=== PATIENT | male | born 1980 | race Hispanic/Latino ===

== ENCOUNTER 2017-08-17 21:10 | Emergency (ER) | payer MEDICAID ==
[2017-08-17 21:12] VITALS: BP 120/72; PULSE 78; RESP 16; TEMP 97.8; O2SAT 98
--- NOTE | 2017-08-17 21:52 | ED PDOC ---
HPI: Seizure Time Seen by Provider: 08/17/17 21:16 Chief Complaint (Nursing): Seizure History Per: Patient Recent Seizure Activity Began: Just Before Arrival Number Of Seizures: One Length Of Seizures (Duration): Unknown Quality Of Seizure: Generalized Precipitating Factor(s): Decreased Sleep, Other (Increased sugar and caffeine). denies: Recent Change In Medication Or Dose, Recent Alcohol Ingestion, Recent Street Drugs, Recent Head Trauma Additional Complaint(s): 36 y/o male with a history of seizure disorder on Oxtellar 100 mg qhs, depakote 450 mg BID, Clonazepam prn. He was riding the train when he experienced a witnessed seizure. By the time the train had stopped, and EMS arrived, he reports that he had returned to baseline. Patient reports that he has been compliant with his medications, but has been taking in more sugar and caffeine recently, as well as not sleeping. He reports that he has had breakthrough seizures in the past when he has had less sleep and been noncompliant with his diet. Past Medical History Vital Signs: Last Vital Signs Temp 97.8 F 08/17/17 21:12 Pulse 78 08/17/17 21:12 Resp 16 08/17/17 21:12 BP 120/72 08/17/17 21:12 Pulse Ox 98 08/17/17 21:12 - Medical History PMH: Seizures - Surgical History Surgical History: No Surg Hx - Family History Family History: States: Unknown Family Hx - Allergies Allergies/Adverse Reactions: Allergies Allergy/AdvReac Type Severity Reaction Status Date / Time lamotrigine Allergy Mild RASH Verified 08/17/17 21:14 Review of Systems ROS Statement: Except As Marked, All Systems Reviewed And Found Negative Neurological: Positive for: Seizures Physical Exam - Reviewed Nursing Documentation Reviewed: Yes Vital Signs Reviewed: Yes - Physical Exam Appears: Positive for: Well, Non-toxic, No Acute Distress Head Exam: Positive for: ATRAUMATIC, NORMAL INSPECTION, NORMOCEPHALIC Skin: Positive for: Normal Color, Warm, DRY Eye Exam: Positive for: EOMI, Normal appearance, PERRL ENT: Positive for: Normal ENT Inspection Neck: Positive for: Normal, Painless ROM Cardiovascular/Chest: Positive for: Regular Rate, Rhythm Respiratory: Positive for: CNT, Normal Breath Sounds Gastrointestinal/Abdominal: Positive for: Normal Exam, Bowel Sounds, Soft Back: Positive for: Normal Inspection Extremity: Positive for: Normal ROM Neurologic/Psych: Positive for: Alert, tanbark peeler II-XII, Oriented, Mood/Affect ( normal ), Cerebellar Tests (normal), Gait (normal). Negative for: Motor/ Sensory Deficits, Aphasia, Facial Droop - ECG O2 Sat by Pulse Oximetry: 98 Medical Decision Making Medical Decision Making: Impression: Seizure in the setting of diet noncompliance and sleep depravation. Discussion: Patient was observed for 30 minutes in the ED and was stable. I did attempt to call Dr. 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 I encouraged the patient to follow up with Dr. Avila in the next few days. Scribe Attestation: Documented by Griselda Campuzano, acting as a scribe for Didier Jon MD. Provider Scribe Attestation: All medical record entries made by the Scribe were at my direction and personally dictated by me. I have reviewed the chart and agree that the record accurately reflects my personal performance of the history, physical exam, medical decision making, and the department course for this patient. I have also personally directed, reviewed, and agree with the discharge instructions and disposition. Disposition - Clinical Impression Clinical Impression: Seizure disorder - Patient ED Disposition Is Patient to be Admitted: No Doctor Will See Patient In The: Office Counseled Patient/Family Regarding: Diagnosis, Need For Followup - Disposition Disposition: Routine/Home Disposition Time: 21:53 Condition: STABLE Additional Instructions: Please call your neurologist, Dr. Avila, tomorrow for followup purposes. Instructions: Epilepsy in Adults Forms: [employer] [facility] (Dominican)
== END 2017-08-17 21:50 | disposition home or self-care (01) ==
LOC: H.ER 21:10
DX: G40.909 Epilepsy, unspecified, not intractable, without status epilepticus (principal); Z91.11 Patient's noncompliance with dietary regimen